=== PATIENT | male | born 1950 | race Caucasian/White ===

== ENCOUNTER 2024-06-26 12:20 | Emergency (ER) | payer MEDICARE | END 2024-06-26 13:28 | disposition left against medical advice (07) | LOC: JP.ED 12:20 | DX: Z53.21 Procedure and treatment not carried out due to patient leaving prior to being seen by health care provider (principal) ==

== ENCOUNTER 2024-12-13 07:41 | Inpatient (IN) | payer MEDICARE ==
[2024-12-13] MEDS ORDERED: Naloxone 0.4 MG/ML SDV IVPUSH PRN (08:36)
[2024-12-13 08:49] LABS: BASOPHILS ABSOLUTE AUTO 0.02 K/uL (0.00-0.10); BASOPHILS PERCENT AUTO 0.3 % (0.1-1.3); EOSINOPHILS ABSOLUTE AUTO 0.04 K/uL (0.00-0.40); EOSINOPHILS PERCENT AUTO 0.6 % (0.0-5.4); HEMATOCRIT 38.9 % (38.4-49.7); HEMOGLOBIN 13.6 g/dL (12.9-16.9); IMMATURE GRAN ABSOLUTE AUTO 0.01 K/uL (0.00-0.23); IMMATURE GRAN PERCENT AUTO 0.1 % (0.0-0.7); LYMPHOCYTES ABSOLUTE AUTO 0.69 K/uL (0.8-3.3); MEAN CORPUSCULAR HEMOGLOBIN 33.6 pg (31.6-35.5); MONOCYTES ABSOLUTE AUTO 0.54 K/uL (0.20-0.90); MONOCYTES PERCENT AUTO 7.8 % (3.3-12.6); NEUTROPHILS ABSOLUTE AUTO 5.58 K/uL (1.0-7.6); NEUTROPHILS PERCENT AUTO 81.2 % (40.0-78.1); PLATELET COUNT,PLT 139 K/uL (130-375); RED BLOOD CELL COUNT 4.05 M/uL (4.14-5.76); WHITE BLOOD CELL COUNT,WBC 6.9 K/uL (3.2-11.0)
[2024-12-13] MEDS: Morphine 2 MG/ML SYRINGE IVPUSH ONE (08:51)
[2024-12-13 09:02] LABS: BILIRUBIN,URINE NEGATIVE (NEGATIVE); COLOR,URINE YELLOW (YELLOW); GLUCOSE,URINE NEGATIVE (NEGATIVE); KETONES,URINE NEGATIVE (NEGATIVE); LEUKOCYTE ESTERASE,URINE NEGATIVE (NEGATIVE); NITRITE,URINE NEGATIVE (NEGATIVE); OCCULT BLOOD,URINE MODERATE (NEGATIVE); PROTEIN,URINE 30 mg/dL (NEGATIVE)
[2024-12-13 09:16] LABS: AMORPHOUS SEDIMENT,URINE NOT SEEN; APPEARANCE,URINE SLIGHTLY CLOUDY (CLEAR); BACTERIA,URINE RARE; EPITHELIAL CELLS,URINE RARE; MUCUS,URINE FEW; RBC,URINE 40-50 (0-5); WBC,URINE 0-5 (0-5)
[2024-12-13 09:19] LABS: A/G RATIO 1.2 (1.2-2.2); ALANINE AMINOTRANSFERASE,ALT 15 U/L (12-78); ALBUMIN 3.6 g/dL (3.4-5.0); ALKALINE PHOSPHATASE 60 U/L (46-116); ASPARTATE AMNIOTRANSFERASE,AST 28 U/L (15-37); BILIRUBIN TOTAL 1.4 mg/dL (0.2-1.0); BLOOD UREA NITROGEN,BUN 16 mg/dL (7-18); CALCIUM 8.7 mg/dL (8.5-10.1); CARBON DIOXIDE,CO2 29 mmol/L (21-32); CHLORIDE,CL 105 mmol/L (100-108); CREATININE 0.9 mg/dL (0.8-1.3); ESTIMATED GFR 90 mL/min (>60); GLUCOSE RANDOM 93 mg/dL (74-106); POTASSIUM,K 3.5 mmol/L (3.6-5.2); PROTEIN TOTAL,TP 6.6 g/dL (6.4-8.2); SODIUM,NA 141 mmol/L (140-148)
[2024-12-13 09:20] LABS: ANION GAP 10.5 mmol/L (5.0-14.0)
[2024-12-13] MEDS: Sodium Chloride 0.9% 10 ML Syringe FLUSH ONE (12:06)
[2024-12-13] MEDS: Sodium Chloride 0.9% 80 ML IV SCH (12:06)
[2024-12-13] MEDS: Iopamidol 612 MG/ML 100 ML Bottle IV SCH (12:06)
[2024-12-13] MEDS: Apixaban 5 MG Tab PO ONE (12:14)
[2024-12-13] MEDS: traMADol 50 MG Tab PO PRN (14:27)
[2024-12-13] MEDS: Acetaminophen 325 MG Tab PO PRN (18:06)
[2024-12-13] MEDS: traZODone 50 MG Tab PO PRN (22:43)
[2024-12-13] MEDS: Apixaban 5 MG Tab PO SCH (22:44)
[2024-12-13] MEDS: Lisinopril 20 MG Tab PO SCH (22:45)
[2024-12-14 06:07] LABS: BASOPHILS ABSOLUTE AUTO 0.04 K/uL (0.00-0.10); BASOPHILS PERCENT AUTO 0.7 % (0.1-1.3); EOSINOPHILS ABSOLUTE AUTO 0.23 K/uL (0.00-0.40); HEMATOCRIT 37.6 % (38.4-49.7); HEMOGLOBIN 13.1 g/dL (12.9-16.9); IMMATURE GRAN PERCENT AUTO 0.2 % (0.0-0.7); LYMPHOCYTES ABSOLUTE AUTO 1.14 K/uL (0.8-3.3); LYMPHOCYTES PERCENT AUTO 19.8 % (11.4-47.7); MEAN CORPUSCULAR HEMOGLOBIN 33.8 pg (31.6-35.5); MEAN CORPUSCULAR HGB CONC 34.8 g/dL (31.6-35.5); MEAN CORPUSCULAR VOLUME 96.9 fL (81.4-99.0); MONOCYTES ABSOLUTE AUTO 0.57 K/uL (0.20-0.90); MONOCYTES PERCENT AUTO 9.9 % (3.3-12.6); NEUTROPHILS ABSOLUTE AUTO 3.77 K/uL (1.0-7.6); NEUTROPHILS PERCENT AUTO 65.4 % (40.0-78.1); PLATELET COUNT,PLT 145 K/uL (130-375); RED BLOOD CELL COUNT 3.88 M/uL (4.14-5.76); WHITE BLOOD CELL COUNT,WBC 5.8 K/uL (3.2-11.0)
[2024-12-14 06:14] LABS: IMMATURE GRAN ABSOLUTE AUTO 0.01 K/uL (0.00-0.23)
[2024-12-14 06:27] LABS: A/G RATIO 1.1 (1.2-2.2); ALANINE AMINOTRANSFERASE,ALT 17 U/L (12-78); ALBUMIN 3.2 g/dL (3.4-5.0); ALKALINE PHOSPHATASE 52 U/L (46-116); ASPARTATE AMNIOTRANSFERASE,AST 26 U/L (15-37); BILIRUBIN TOTAL 1.3 mg/dL (0.2-1.0); BLOOD UREA NITROGEN,BUN 17 mg/dL (7-18); CALCIUM 8.3 mg/dL (8.5-10.1); CARBON DIOXIDE,CO2 30 mmol/L (21-32); CHLORIDE,CL 104 mmol/L (100-108); CREATININE 0.9 mg/dL (0.8-1.3); EST CRCL DRUG DOSING (CG) 79.88 mL/min; ESTIMATED GFR 90 mL/min (>60); GLUCOSE RANDOM 81 mg/dL (74-106); POTASSIUM,K 3.2 mmol/L (3.6-5.2); PROTEIN TOTAL,TP 6.1 g/dL (6.4-8.2); SODIUM,NA 139 mmol/L (140-148)
[2024-12-14 06:28] LABS: ANION GAP 8.2 mmol/L (5.0-14.0)
[2024-12-14] MEDS: Potassium Chloride 10 MEQ Cap.ER PO SCH (09:51)
[2024-12-14] MEDS: Acetaminophen/HYDROcodone 325-5 MG Tab PO PRN (17:18)
[2024-12-15 06:09] LABS: CALCIUM 8.5 mg/dL (8.5-10.1); CREATININE 0.9 mg/dL (0.8-1.3); EST CRCL DRUG DOSING (CG) 79.88 mL/min; POTASSIUM,K 3.7 mmol/L (3.6-5.2)
[2024-12-15 06:20] LABS: ANION GAP 7.7 mmol/L (5.0-14.0)
[2024-12-15] MEDS: Naproxen 250 MG Tab PO PRN (10:47)
[2024-12-16 13:55] LABS: CALCIUM 8.2 mg/dL (8.5-10.1); CREATININE 1.1 mg/dL (0.8-1.3); EST CRCL DRUG DOSING (CG) 65.36 mL/min; POTASSIUM,K 3.9 mmol/L (3.6-5.2)
[2024-12-16 13:56] LABS: ANION GAP 2.9 mmol/L (5.0-14.0)
== END 2024-12-16 14:31 | disposition home or self-care (01) | DRG 206 ==
LOC: JP.ED 07:41 → JP.MS 11:52
PROVIDERS: ADMIT Internal Medicine; ATTEND Internal Medicine
DX: S22.32XA Fracture of one rib, left side, initial encounter for closed fracture (principal); S22.089A Unspecified fracture of T11-T12 vertebra, initial encounter for closed fracture; H54.7 Unspecified visual loss; I48.91 Unspecified atrial fibrillation; I10 Essential (primary) hypertension; G47.00 Insomnia, unspecified; W01.0XXA Fall on same level from slipping, tripping and stumbling without subsequent striking against object, initial encounter; W01.190A Fall on same level from slipping, tripping and stumbling with subsequent striking against furniture, initial encounter; F32.A Depression, unspecified; F15.90 Other stimulant use, unspecified, uncomplicated; E87.6 Hypokalemia; Y93.9 Activity, unspecified; Z79.01 Long term (current) use of anticoagulants; Z79.899 Other long term (current) drug therapy; Z98.890 Other specified postprocedural states; Z86.73 Personal history of transient ischemic attack (TIA), and cerebral infarction without residual deficits; Y92.9 Unspecified place or not applicable
CPT/HCPCS: 36415; 70450 ×2; 71046 ×2; 71260 ×2; 80053; 81001; 84443; 85025; 93005; 96374; 99285; J2270; 80048; 93010; 97161-GP; 97165-GO; 97530-GP; 99284; A9270-GY; Q9967